=== PATIENT | male | born 1955 | race Caucasian/White ===

== ENCOUNTER → 2019-07-08 | Outpatient (CLI) | payer BC, MEDICARE ==
[~2019-07-08] VITALS: Ht 197 cm; Wt 155.0 kg
[~2019-07-08] MED LIST: CATHETER FLUSH 10 ML SYR IV PRN
[2019-07-08 12:46] VITALS: BP 140/90
--- NOTE | 2019-07-08 15:42 | STRESS TEST ---
DATE OF SERVICE: 07/08/2019 LEXISCAN MYOVIEW STRESS TEST REPORT REFERRING PHYSICIAN: Dr. Nix. Baseline heart rate is 77, baseline blood pressure 130/78. Baseline EKG is atrial fibrillation with frequent PVCs and ventricular couplets. In summary, the patient was injected with 10.93 mCi of technetium-99 Myoview and the resting images were obtained. Then, the patient received 0.4 mg of Lexiscan followed by 30.0 mCi of technetium-99 Myoview. Throughout the test, there were no EKG changes. The resting and stress images were reviewed and compared in the short axis, horizontal long axis, and vertical long axis views. Review of the images showed decreased uptake involving the whole inferior wall, mild reversibility involving the inferoapical segment and true apex and inferolateral wall. SSS is 10, SDS 4, TID value 0.96. On the gated images, the left ventricle appears to be dilated with diffuse left ventricular hypokinesia, calculated ejection fraction of 25%, gated images are unreliable due to underlying atrial fibrillation. CONCLUSION: 1. The patient tolerated Lexiscan well. 2. Baseline atrial fibrillation with frequent PVCs and ventricular couplets. 3. Reversible ischemia involving the mid to apical inferior wall and true apex and inferolateral wall. 4. Prominent left ventricle with diffuse left ventricular hypokinesia, calculated ejection fraction of 25%, gated images are unreliable due to underlying atrial fibrillation. Job ID: [id number] DocumentID: [id number] Dictated Date: 07/08/2019 14:31:40 Scale Clerk Date: 07/08/2019 15:41:45 Dictated By: ARNOL HUDSON MD
== END ==
LOC: CARD 10:27
PROVIDERS: ATTEND Internal Medicine Cardiovascular Disease
DX: I48.91 Unspecified atrial fibrillation (principal); I11.9 Hypertensive heart disease without heart failure; E66.9 Obesity, unspecified; I49.3 Ventricular premature depolarization; I34.0 Nonrheumatic mitral (valve) insufficiency
CPT/HCPCS: 78452; 93017; 93306